=== PATIENT | male | born 1975 | race Caucasian/White ===

== ENCOUNTER → 2019-05-05 12:53 | Outpatient (CLI) | payer BC, SELFPAY ==
--- NOTE | ~2019-05-05 | MR_ITS ---
EXAMINATION: MR brain/brain stem wo/w con DATE: 05/05/2019 14:17 INDICATION: Transient cerebral ischemic attack, unspecified. TECHNIQUE: Magnetic resonance imaging (MRI) of the brain and brainstem was performed without and with 20 mL MultiHance intravenous contrast. Sequences included sagittal and axial T1-weighted FSE, axial diffusion-weighted FS EPI, axial T2*-weighted GRE, axial T2-weighted FLAIR Propeller, and axial T2-we ighted Propeller. Postcontrast sequences included axial and coronal T1-weighted FSE. Apparent diffusi on coefficient (ADC) maps were created. COMPARISON: None. FINDINGS: There are scattered areas of nonspecific increased T2-weighted signal intensity in the cere bral white matter. There are prominent perivascular spaces in the white matter in the parietal lobes. There is no intracranial hemorrhage, acute infarction, or abnormal intracranial mass lesion. The john tricles are normal in size. The paranasal sinuses are clear. The orbits are normal. The mastoid air c ells are normal. IMPRESSION: 1. Mild nonspecific cerebral white matter disease, which likely represents chronic small vessel ische joleen disease. Reviewed, dictated and finalized at location A. TACKER IMPRESSION: 1. Mild nonspecific cerebral white matter disease, which likely represents scorer single joyce small vessel ischemic disease.
--- NOTE | ~2019-05-05 | US_ITS ---
EXAMINATION: US carotid duplex BI EXAM DATE: 05/05/2019 13:25 INDICATION: Blurred vision. Vertigo. Transient ischemic attack. TECHNIQUE: Grayscale, color and pulsed Doppler images of the cervical carotid arteries were obtained . The degree of vessel stenosis is placed in one of the following categories: normal, <50% stenosis, 50-69% stenosis, >=70% stenosis but less than near-occlusion, near-occlusion, or occlusion. Note that percent stenosis relative to normal distal artery lumen diameter is indirectly measured from velocit y measurements as described by Adeel, et al. Radiology 2003; 229:340-346. There is no prior study fo r comparison. FINDINGS: RIGHT SIDE: Right common carotid artery peak systolic velocity (PSV in cm/s): 104 Right bulb/internal carotid artery peak systolic velocity (PSV in cm/s): 67 Right internal carotid artery end diastolic velocity (EDV in cm/s): 24 Right ICA/CCA peak systolic ratio: 0.9 Right external carotid artery peak systolic velocity (PSV in cm/s): 130 Right vertebral artery antegrade flow: yes There is no focal plaque identified. LEFT SIDE: Left common carotid artery peak systolic velocity (PSV in cm/s): 102 Left bulb/internal carotid artery peak systolic velocity (PSV in cm/s): 50 Left internal carotid artery end diastolic velocity (EDV in cm/s): 16 Left ICA/CCA peak systolic ratio: 0.9 Left external carotid artery peak systolic velocity (PSV in cm/s): 71 Left vertebral artery antegrade flow: yes There is no focal plaque identified. IMPRESSION: 1. Normal right internal carotid artery. 2. Normal left internal carotid artery. > Reviewed, dictated and finalized at location B. ER OPERATOR SUPERVISOR
[2019-05-05 13:55] LABS: Blood Urea Nitrogen 15 mg/dL (8-26); Estimated Glomerular Filt Rate > 60
== END ==
PROVIDERS: Visit Provider Physician Assistant
DX: G45.9 Transient cerebral ischemic attack, unspecified (principal)
CPT/HCPCS: 70553; 93880; A9577

== ENCOUNTER 2025-02-09 02:37 | Day surgery (SDC) | payer BC, SELFPAY ==
[2025-02-06 13:15] VITALS: BMI 38.2
[2025-02-09 12:13] VITALS: BP 139/99; PULSE 86; RESP 20; TEMP 36.5; O2SAT 99
[2025-02-09] MEDS: LACTATED RINGERS 1,000 ML 150 ML IV CONT (12:26)
--- NOTE | 2025-02-09 13:20 | SUR.PREOP ---
pt and family made aware that dr nascimento is behind schedule due to lengthy earlier procedures. will continue to update. voiced understanding.
--- NOTE | 2025-02-09 13:37 | PM.IMHP2 ---
H&P: HPI History of Present Illness Date/Time: 02/09/25 13:37 Chief Complaint: Screening colonoscopy Narrative: This is the patient's first colonoscopy. There are no GI symptoms and there is no family history of colorectal cancer. Review of Systems Review of Systems: All systems reviewed & are unremarkable except as noted in HPI and below PMFSH Past Medical History Medical History Viral warts Achilles tendinitis TIA (transient ischemic attack) 05.05.19 MRI: Mild nonspecific cerebral white matter disease, likely represents chronic small vessel ischemic disease. 05.05.19 carotid doppler: normal Social History Social History (Updated 01/20/25 @ 09:54 by Xochilt Teixeira CMA) Smoking status: Never smoker Alcohol intake: current Alcohol use details: occasionally Substance use: never Substance use type: does not use Lack of Transportation: No Lack of Food: Sometimes True Current Housing: I Have Housing Concerned About Future Housing: No Difficulty Paying Gas/Electric Bills: No Difficulty Paying for Meds: No Currently Unemployed: No Education: High School Diploma/GED Difficulty w/ Childcare or Family Care: No Living arrangements: alone Spiritual care concerns: No Meds Home Medications and Allergies Home Medications ?Medication ?Instructions ?Recorded ?Confirmed ?Type aspirin 81 mg tablet,delayed 81 mg PO DAILY 05/21/20 02/09/25 History release CPAP Equipment #1 ea 08/12/23 02/06/25 Rx atorvastatin 10 mg tablet See Rx Instructions .Route 08/29/24 02/09/25 Rx .COMPLEX #90 tabs sertraline 100 mg tablet 100 mg PO DAILY #90 tabs 12/20/24 02/09/25 Rx irbesartan 150 1 tablet PO DAILY #90 tabs 12/26/24 02/09/25 Rx mg-hydrochlorothiazide 12.5 mg tablet tirzepatide (weight loss) 2.5 2.5 mg (0.5 mL) subcut WEEKLY #2 mL 01/23/25 02/06/25 Rx mg/0.5 mL subcutaneous pen injector (Zepbound) Held on 02/06/25. Instructions: Patient Condition tamsulosin 0.4 mg capsule 0.4 mg PO DAILY #90 caps 02/01/25 02/09/25 Rx tirzepatide (weight loss) 2.5 2.5 mg (0.5 mL) subcut WEEKLY 4 02/01/25 02/06/25 Rx mg/0.5 mL subcutaneous solution weeks #2 mL (Zepbound) Held on 02/06/25. Instructions: Patient Condition Allergies Allergy/AdvReac Type Severity Reaction Status Date / Time No Known Allergies Allergy Mild Verified 02/09/25 12:10 Vital Signs Vital Signs - 24 hr 02/09/25 12:13 Temperature 97.7 F Pulse Rate 86 Respiratory Rate 20 Blood Pressure 139/99 H Pulse Oximetry 99 Oxygen Delivery Room Air Exam Const: General: cooperative and healthy appearing Resp: Effort & Inspection: normal respiratory effort and able to speak in complete sentences Auscultation: clear to auscultation bilaterally Cardio: Rate: regular rate Rhythm: regular rhythm GI: Inspection: normal to inspection GI Palp: No No hepatosplenomegaly present Auscultation: normal bowel sounds Rectal Exam: deferred Skin: General skin exam: normal color Psych: Appearance: grossly normal Mental Status: mental status grossly normal Assessment and Plan Assessment and plan (1) Screening for colon cancer: Code(s): Z12.11 - Encounter for screening for malignant neoplasm of colon Status: Acute Plan The patient is deemed a good candidate for the procedure. Consent signed. Will proceed. Prior Studies I have reviewed the following patient records and this information was taken into consideration when formulating the assessment and plan.: previous labs, previous ER visits, previous hospitalizations and previous clinic visits
--- NOTE | 2025-02-09 14:06 | P.PNAN_ITS ---
Anes - Initial Pre Proc Eval Procedure: Operation Date: 02/09/25 13:00 Proposed Procedures p Screening Colonoscopy - Jose De Jesus Leonardo MD Date/Time: 02/09/25 14:06 Surgeon: Jose De Jesus Leonardo MD Pre Op Diagnosis: Encounter for screening for malignant neoplasm of Patient Data Age: 50 Gender: M Height: 1.85 m Weight: 130.1 kg Last Vital Signs Temp 36.5 C 02/09/25 12:13 Pulse 86 02/09/25 12:13 Resp 20 02/09/25 12:13 BP 139/99 H 02/09/25 12:13 Pulse Ox 99 02/09/25 12:13 O2 Del Method Room Air 02/09/25 12:13 Allergies Allergy/AdvReac Type Severity Reaction Status Date / Time No Known Allergies Allergy Mild Verified 02/09/25 12:10 Home Medications ?Medication ?Instructions ?Recorded ?Confirmed ?Type aspirin 81 mg tablet,delayed 81 mg PO DAILY 05/21/20 1 04/12/24 History release CPAP Equipment #1 ea 08/12/23 02/06/25 Rx atorvastatin 10 mg tablet See Rx Instructions .Route 0 08/29/24 02/09/25 Rx .COMPLEX #90 tabs sertraline 100 mg tablet 100 mg PO DAILY #90 tabs 02/09/25 Rx irbesartan 150 1 tablet PO DAILY #90 tabs 1 02/09/25 Rx mg-hydrochlorothiazide 12.5 mg tablet tirzepatide (weight loss) 2.5 2.5 mg (0.5 mL) subcut W EEKLY #2 mL 01/23/25 02/06/25 Rx mg/0.5 mL subcutaneous pen injector (Zepbound) Held on 02/06/25. Instructions: Patient Condition tamsulosin 0.4 mg capsule 0.4 mg PO DAILY #90 caps 02/09/25 Rx tirzepatide (weight loss) 2.5 2.5 mg (0.5 mL) subcut W EEKLY 4 02/01/25 02/06/25 Rx mg/0.5 mL subcutaneous solution weeks #2 mL (Zepbound) Held on 02/06/25. Instructions: Patient Condition Patient hx anesthesia problems: none Family hx anesthesia problems: none Results Review: All pre-operative results and documents have been reviewed as part of the pre- operative evaluation. [facility] Past Medical History Medical History Viral warts Achilles tendinitis TIA (transient ischemic attack) 05.05.19 MRI: Mild nonspecific cerebral white matter disease, likely represents chronic small vessel ischemic disease. 05.05.19 carotid doppler: normal Social History Social History Smoking status: Never smoker Alcohol intake: current Alcohol use details: occasionally Substance use: never Substance use type: does not use Lack of Transportation: No Lack of Food: Sometimes True Current Housing: I Have Housing Concerned About Future Housing: No Difficulty Paying Gas/Electric Bills: No Difficulty Paying for Meds: No Currently Unemployed: No Education: High School Diploma/GED Difficulty w/ Childcare or Family Care: No Living arrangements: alone Spiritual care concerns: No Anes - Eval Final PreProcedure Day of Procedure 02/09/25 14:06 Patient weight: obese Heart: regular rate and rhythm Lungs: clear to auscultation Airway: Mallampati scale class II Neurological: alert and oriented Last oral intake: >/= 8 hours ASA classification: III Emergent: no Anesthetic plan: proceed Anesthesia type and monitoring: general GIVS and standard monitoring Results Review: All pre-operative results and documents have been reviewed as part of the pre-operative evaluation. Informed Consent: The patient's anesthetic plan and its attendant risks and benefits were discussed with the patient/family/POA. Questions were solicited and answers provided to the satisfaction of the patient/family/POA.
[2025-02-09] MEDS: SIMETHICONE ORAL SUSPENSION 20 MG/0.3 ML 30 ML BOTTLE 0.6 ML IRRIGATION (14:16)
--- NOTE | 2025-02-09 14:25 | S_PTH ---
PATIENT: Pawel Tineo LOC: [facility] U#:[id number] AGE/SX: 50/M ROOM: RE02/09/[address]: Jose De Jesus Leonardo MD : 1975 BED: DIS: 02/09/2025 SPEC #: [id number] RECD: 02/10/25 08:46 STATUS: ADELAIDA REQ #: [id number] SANTANA: 02/09/25 14:[address]: Jose De Jesus Leonardo DEPT: [facility] Surgical RECD BY: Zeinab Diaz ENTERED: 02/10/25 08:46 SP TYPE: Surgical OTHR DR: Tosha Nicholas MD Tissues: A - Colon Polypectomy Procedures: Hematoxylin and Eosin Stain Gross and Microscopic Level 4
[2025-02-09 14:27] VITALS: BP 123/84; PULSE 76; RESP 16; O2SAT 96
[2025-02-09 14:37] VITALS: BP 130/97; PULSE 75; RESP 17; O2SAT 98
[2025-02-09 14:47] VITALS: BP 132/94; PULSE 72; RESP 14; O2SAT 100
== END 2025-02-09 15:01 | disposition home or self-care (01) ==
PROVIDERS: PCP Family Medicine; Referring Provider Student in an Organized Health Care Education/Training Program; Visit Provider Internal Medicine Gastroenterology
PROC: 0DJD8ZZ Inspection of Lower Intestinal Tract, Via Natural or Artificial Opening Endoscopic (ICD-10-PCS; CPT 45378; principal; 2025-02-09 13:00)
DX: Z12.11 Encounter for screening for malignant neoplasm of colon (principal); K63.5 Polyp of colon; K57.30 Diverticulosis of large intestine without perforation or abscess without bleeding; E66.9 Obesity, unspecified; Z68.37 Body mass index [BMI] 37.0-37.9, adult; Z79.82 Long term (current) use of aspirin; Z79.85 Long-term (current) use of injectable non-insulin antidiabetic drugs; Z99.89 Dependence on other enabling machines and devices; Z86.73 Personal history of transient ischemic attack (TIA), and cerebral infarction without residual deficits
CPT/HCPCS: 45385; 88305; J2704; J7120